=== PATIENT | female | born 1955 | race Caucasian/White ===

== ENCOUNTER 2016-06-24 11:00 | Emergency (ER) | payer MEDICAID ==
--- NOTE | 2016-06-24 11:14 | EDM.PDOC ---
ED HPI GENERAL MEDICAL PROBLEM - General Chief Complaint: General Stated Complaint: PASSING OUT Time Seen by Provider: 06/24/16 11:10 Source of Information: Reports: Patient History Limitations: Reports: No limitations - History of Present Illness INITIAL COMMENTS - FREE TEXT/NARRATIVE: HISTORY AND PHYSICAL: History of present illness: [Patient is brought to the ER by her cousin for evaluation. This morning she had a near syncopal episode after she had some vomiting and a bowel movement. She states that she has not been feeling well for the past several weeks and last followed up with Dr. Miller her PCP on June 10. She's been taking gabapentin and Zoloft since then. She admits to decreased appetite for the past 4 weeks or so. vague complaints of pain to her neck, chest, and wrapping around her mid back. She describes a burning sensation over her midsternum. The pain does not feel like a heaviness or pressure in her chest. Denies sharp shooting pain in her chest. Has had no shortness of breath or difficulty breathing. Her arms feel limp and weak, not worse unilaterally. Bowel movement was normal this morning. Smokes one pack per day] Review of systems: As per history of present illness and below otherwise all systems reviewed and negative. Past medical history: As per history of present illness and as reviewed below otherwise noncontributory. Surgical history: As per history of present illness and as reviewed below otherwise noncontributory. Social history: No reported history of drug or alcohol abuse. Family history: As per history of present illness and as reviewed below otherwise noncontributory. Physical exam: General: Well-developed thin frail female in no acute distress. Skin is pale to [place] in color HEENT: Atraumatic, normocephalic. PERRLA. mucous membranes moist. neck supple, nontender, trachea midline. Lungs: Clear to auscultation, breath sounds equal bilaterally, chest nontender. Heart: S1S2, regular rate and rhythm. negative for clicks, rubs, or JVD. Abdomen: Thin, Soft, nondistended, nontender. Pelvis: Stable nontender. Genitourinary: Deferred. Rectal: Deferred. Extremities: Atraumatic, no deformity. No cyanosis or edema to feet or lower legs. Neurovascular unremarkable. Neuro: Awake, alert, oriented. Motor and sensory unremarkable throughout. Exam nonfocal. Diagnostics: [CBC, CMP, troponin, EKG, chest x-ray, urinalysis] Therapeutics: [Aspirin 324 mg chewed] Impression: [STEMI] Plan: [EKG shows STEMI. Troponin 0.39. Dr. Draper discussed the case with Dr. Peraza at [facility]. He recommends holding TNKase and giving 7000 units heparin IV. 1 L bolus of normal saline. Patient will be transferred by [facility] flight air ambulance to [facility] ER. ] Definitive disposition and diagnosis as appropriate pending reevaluation and review of above. 0 left shoulder Pain Score (Numeric/FACES): 4 - Related Data Allergies Allergy/AdvReac Type Severity Reaction Status Date / Time No Known Allergies Allergy Verified 06/24/16 11:19 Home Meds: Home Meds Fluticasone/Vilanterol [Breo Ellipta 100-25 MCG Inhalation Kit] 1 each IH DAILY 06/24/16 [History] Gabapentin [Gralise] 600 mg PO QID 06/24/16 [History] Sertraline [Zoloft] 50 mg PO ONETIME 06/24/16 [History] Sulfamethoxazole/Trimethoprim [Bactrim 400-80 MG] 1 each PO DAILY 06/24/16 [ History] ED ROS GENERAL - Review of Systems Review Of Systems: ROS reveals no pertinent complaints other than HPI. ED EXAM, GENERAL - Physical Exam Exam: See Below Course - Vital Signs Last Recorded V/S: Last Vital Signs Temp 97.6 F 06/24/16 11:16 Pulse 73 06/24/16 11:16 Resp 18 06/24/16 11:16 BP 107/63 06/24/16 11:16 Pulse Ox 94 L 06/24/16 11:16 - Orders/Labs/Meds Orders: Active Orders 24 hr Category Date Time Status EKG Documentation Completion [RC] STAT Care 06/24/16 11:18 Active EKG Documentation Completion [RC] STAT Care 06/24/16 12:00 Active Chest 1V Frontal [CR] Stat Exams 06/24/16 11:52 Taken COMPREHENSIVE METABOLIC PN,CMP [CHEM] Stat Lab 06/24/16 11:28 Received Sodium Chloride 0.9% [Normal Saline] 1,000 ml Med 06/24/16 11:40 Active IV .Bolus Sodium Chloride 0.9% [Saline Flush] Med 06/24/16 11:18 Active 10 ml FLUSH ASDIRECTED PRN Sodium Chloride 0.9% [Saline Flush] Med 06/24/16 11:18 Active 2.5 ml FLUSH ASDIRECTED PRN Saline Lock Insert [OM.PC] Stat Oth 06/24/16 11:19 Ordered Medication Orders Sodium Chloride (Normal Saline) 1,000 mls @ 999 mls/hr IV .Bolus ONE Stop: 06/24/16 12:40 Last Admin: 06/24/16 11:42 Dose: 999 mls/hr Sodium Chloride (Saline Flush) 10 ml FLUSH ASDIRECTED PRN PRN Reason: Keep Vein Open Last Admin: 06/24/16 11:25 Dose: 10 ml Sodium Chloride (Saline Flush) 2.5 ml FLUSH ASDIRECTED PRN PRN Reason: Keep Vein Open Last Admin: 06/24/16 11:25 Dose: 2.5 ml Labs: Laboratory Tests 06/24/16 06/24/16 Range/Units 11:28 11:28 WBC 12.27 H (4.0-11.0) K/uL RBC 5.03 (4.30-5.90) M/uL Hgb 15.5 (12.0-16.0) g/dL Hct 45.6 (36.0-46.0) % MCV 90.7 (80.0-98.0) fL MCH 30.8 (27.0-32.0) pg MCHC 34.0 (31.0-37.0) g/dL RDW Std Deviation 44.5 (28.0-62.0) fl RDW Coeff of Shobha 14 (11.0-15.0) % Plt Count 277 (150-400) K/uL MPV 9.20 (7.40-12.00) fL Neut % (Auto) 86.8 H (48.0-80.0) % Lymph % (Auto) 5.3 L (16.0-40.0) % Sac % (Auto) 7.5 (0.0-15.0) % Eos % (Auto) 0.2 (0.0-7.0) % Baso % (Auto) 0.2 (0.0-1.5) % Neut # 10.7 H (1.4-5.7) K/uL Lymph # 0.7 (0.6-2.4) K/uL Sac # 0.9 H (0.0-0.8) K/uL Eos # 0.0 (0.0-0.7) K/uL Baso # 0.0 (0.0-0.1) K/uL Nucleated RBC % 0.0 /100WBC Nucleated RBCs # 0 K/uL Troponin I 0.39 H* (0.0-0.29) NG/ML Meds: Medications Generic Name Dose Route Start Last Admin Trade Name Freq PRN Reason Stop Dose Admin Sodium Chloride 1,000 mls @ 999 mls/hr 06/24/16 11:40 06/24/16 11:42 Normal Saline IV 06/24/16 12:40 999 mls/hr .Bolus ONE Administration Sodium Chloride 10 ml 06/24/16 11:18 06/24/16 11:25 Saline Flush FLUSH 10 ml ASDIRECTED PRN Administration Keep Vein Open Sodium Chloride 2.5 ml 06/24/16 11:18 06/24/16 11:25 Saline Flush FLUSH 2.5 ml ASDIRECTED PRN Administration Keep Vein Open Discontinued Medications Generic Name Dose Route Start Last Admin Trade Name Freq PRN Reason Stop Dose Admin Aspirin 324 mg 06/24/16 11:19 06/24/16 11:25 Aspirin PO 06/24/16 11:20 324 mg ONETIME ONE Administration Heparin Sodium (Porcine) 7,000 units 06/24/16 11:42 06/24/16 11:50 Heparin Sodium IVPUSH 06/24/16 11:43 7,000 units ONETIME ONE Administration Tenecteplase Confirm 06/24/16 11:40 06/24/16 11:49 Tnkase Administered 06/24/16 11:41 Not Given Dose 50 mg .ROUTE .STK-MED ONE Departure - Departure Time of Disposition: 12:05 Disposition: DC/Tfer to Acute Hospital 02 Condition: good Clinical Impression: HI, Myocardial infarction Forms: ED Department Discharge - My Orders Last 24 Hours: My Active Orders 06/24/16 11:18 EKG Documentation Completion [RC] STAT Sodium Chloride 0.9% [Saline Flush] 10 ml FLUSH ASDIRECTED PRN Sodium Chloride 0.9% [Saline Flush] 2.5 ml FLUSH ASDIRECTED PRN 06/24/16 11:19 Saline Lock Insert [OM.PC] Stat 06/24/16 11:28 COMPREHENSIVE METABOLIC PN,CMP [CHEM] Stat 06/24/16 11:40 Sodium Chloride 0.9% [Normal Saline] 1,000 ml IV .Bolus 06/24/16 11:52 Chest 1V Frontal [CR] Stat 06/24/16 12:00 EKG Documentation Completion [RC] STAT - Assessment/Plan Last 24 Hours: My Active Orders 06/24/16 11:18 EKG Documentation Completion [RC] STAT Sodium Chloride 0.9% [Saline Flush] 10 ml FLUSH ASDIRECTED PRN Sodium Chloride 0.9% [Saline Flush] 2.5 ml FLUSH ASDIRECTED PRN 06/24/16 11:19 Saline Lock Insert [OM.PC] Stat 06/24/16 11:28 COMPREHENSIVE METABOLIC PN,CMP [CHEM] Stat 06/24/16 11:40 Sodium Chloride 0.9% [Normal Saline] 1,000 ml IV .Bolus 06/24/16 11:52 Chest 1V Frontal [CR] Stat 06/24/16 12:00 EKG Documentation Completion [RC] STAT
[2016-06-24] MEDS ORDERED: Sodium Chloride 0.9% 2.5 ML Syringe FLUSH PRN (11:18)
[2016-06-24] MEDS ORDERED: Sodium Chloride 0.9% 10 ML Syringe FLUSH PRN (11:18)
[2016-06-24] MEDS ORDERED: Aspirin 81 MG Tab.Chew PO ONE (11:19)
[2016-06-24] MEDS ORDERED: Tenecteplase 50 MG Kit ONE (11:40)
[2016-06-24] MEDS ORDERED: Sodium Chloride 0.9% 1,000 ML IV ONE (11:40)
[2016-06-24] MEDS ORDERED: Heparin Sodium 5,000 Units/ML Vial IVPUSH ONE (11:42)
--- NOTE | 2016-06-24 12:21 | CR ---
EXAMINATION: Portable chest radiograph. HISTORY: Chest pain. FINDINGS: The trachea is midline. The cardiomediastinal silhouette is within normal limits. Chronic interstiti al changes are noted. There is a 4.1 cm left apical mass noted. No pleural effusion or pneumothorax. Osseous structures appear unremarkable. IMPRESSION: 1. Chronic interstitial changes noted. 2. Suspicious 4.1 cm left apical mass.
[2016-06-24 12:28] LABS: CHLORIDE,CL 100 mmol/L (98-110); SODIUM,NA 131 mmol/L (136-146)
[2016-06-24 13:11] VITALS: BP 99/57
== END 2016-06-24 12:05 ==
LOC: MW.ED 11:00
DX: I21.3 ST elevation (STEMI) myocardial infarction of unspecified site (principal); R11.10 Vomiting, unspecified; R63.0 Anorexia; Z79.899 Other long term (current) drug therapy
CPT/HCPCS: 36415; 71010; 80053; 84484; 85025; 93005; 96374; 99291; A9270; J1644; J7040; 99285

== ENCOUNTER 2017-11-06 14:22 | Emergency (ER) | payer MEDICAID ==
[2017-11-06] MEDS ORDERED: Albuterol/Ipratropium 3.0-0.5 MG/3 ML Neb Soln NEB ONE (14:58)
[2017-11-06] MEDS ORDERED: predniSONE 20 MG Tab PO ONE (14:58)
--- NOTE | 2017-11-06 15:02 | EDM.PDOC ---
ED HPI GENERAL MEDICAL PROBLEM - General Chief Complaint: Respiratory Problem Stated Complaint: SOB Time Seen by Provider: 11/06/17 14:29 Source of Information: Reports: Patient History Limitations: Reports: No Limitations - History of Present Illness INITIAL COMMENTS - FREE TEXT/NARRATIVE: History of present illness: []She has been having coughing and shortness of breath for 5 days. Eyes are always been using albuterol nebs 3 times a day with mild improvement. She denies any fevers, chills, nausea, vomiting or diarrhea. Some mild chest pain meds in the back of her chest on the left shoulder blade. Patient believes she has had a heart attack one year ago when she was seen here and flown to [place] and stents were placed. At that time she was told she may need 1 more stent later on but Dr. Jameson has since retired and she does not have a equipment cleaner to follow-up with. Patient is a smoker and does continue to smoke. Review of systems: As per history of present illness and below otherwise all systems reviewed and negative. Past medical history: As per history of present illness and as reviewed below otherwise noncontributory. Surgical history: As per history of present illness and as reviewed below otherwise noncontributory. Social history: No reported history of drug or alcohol abuse. Family history: As per history of present illness and as reviewed below otherwise noncontributory. Physical exam: General: Well developed, well nourished in NAD HEENT: Atraumatic, normocephalic, pupils reactive, negative for conjunctival pallor or scleral icterus, mucous membranes moist, throat clear, neck supple, nontender, trachea midline. Lungs: Bilateral wheezing to auscultation, , chest nontender. No respiratory distress Heart: S1S2, regular, negative for clicks, rubs, or JVD. Abdomen: Soft, nondistended, nontender. Negative for masses or hepatosplenomegaly. Negative for costovertebral tenderness. Pelvis: Stable nontender. Genitourinary: Deferred. Rectal: Deferred. Extremities: Atraumatic, negative for cords or calf pain. Neurovascular unremarkable. Neuro: Awake, alert, oriented. Cranial nerves II through XII unremarkable. Cerebellum unremarkable. Motor and sensory unremarkable throughout. Exam nonfocal. Diagnostics: []Stat x-ray done showing multiple large metastases bilaterally with the primary nodule in the left upper apices that was present on a chest x-ray June 24, 2016 Therapeutics: []DuoNeb, prednisone Impression: []Bilateral pulmonary metastases Plan: []Follow-up with primary care or if any symptoms worsen or change. Definitive disposition and diagnosis as appropriate pending reevaluation and review of above. Left Arm Pain Score (Numeric/FACES): 5 - Related Data Allergies Allergy/AdvReac Type Severity Reaction Status Date / Time No Known Allergies Allergy Verified 11/06/17 14:44 Home Meds: Home Meds Fluticasone/Vilanterol [Breo Ellipta 100-25 MCG Inhalation Kit] 1 each IH DAILY 06/24/16 [History] Gabapentin [Gralise] 600 mg PO QID 06/24/16 [History] Sertraline [Zoloft] 50 mg PO DAILY 06/24/16 [History] Aspirin 81 mg PO DAILY 11/06/17 [History] Clopidogrel [Plavix] 75 mg PO DAILY 11/06/17 [History] Lisinopril 5 mg PO DAILY 11/06/17 [History] Metoprolol Tartrate 0.5 tab PO BID 11/06/17 [History] atorvaSTATin [Lipitor] 40 mg PO BEDTIME 11/06/17 [History] predniSONE [Prednisone] 20 mg PO DAILY #5 tablet 11/06/17 [Rx] Past Medical History Cardiovascular History: Reports: Hypertension, [place], Stents Respiratory History: Reports: COPD Musculoskeletal History: Reports: Other (See Below) Other Musculoskeletal History: neuropathy Psychiatric History: Reports: Anxiety, Depression - Infectious Disease History Infectious Disease History: Reports: Measles - Past Surgical History Female Surgical History: Reports: Section Social & Family History - Family History Family Medical History: Noncontributory - Tobacco Use Smoking Status *Q: Current Every Day Smoker Years of Tobacco use: 40 Packs/Tins Daily: 0.5 - Caffeine Use Caffeine Use: Reports: Coffee - Recreational Drug Use Recreational Drug Use: No ED ROS GENERAL - Review of Systems Review Of Systems: ROS reveals no pertinent complaints other than HPI. ED EXAM, GENERAL - Physical Exam Exam: See Below (See history of present illness) Course - Vital Signs Last Recorded V/S: Last Vital Signs Temp 97.3 F 11/06/17 14:41 Pulse 83 11/06/17 14:41 Resp 16 11/06/17 14:41 BP 100/56 L 11/06/17 14:41 Pulse Ox 94 L 11/06/17 14:41 - Orders/Labs/Meds Orders: Active Orders 24 hr Category Date Time Status RT Aerosol Therapy [RC] ASDIRECTED Care 11/06/17 14:58 Active Meds: Medications Discontinued Medications Generic Name Dose Route Start Last Admin Trade Name Lito PRN Reason Stop Dose Admin Albuterol/Ipratropium 3 ml 11/06/17 14:58 11/06/17 15:20 Duoneb 3.0-0.5 Mg/3 Ml NEB 11/06/17 14:59 3 ml ONETIME ONE Administration Prednisone 60 mg 11/06/17 14:58 11/06/17 15:39 Prednisone PO 11/06/17 14:59 60 mg ONETIME ONE Administration - Re-Assessments/Exams Free Text/Narrative Re-Assessment/Exam: I was unable to find any records of documentation of any follow-up is from back in June 2016. Patient stated that she was told that she had a lung nodule suspicious for cancer back in 2016 however she chose to not follow-up or seek treatment. She states Dr. Miller did address this finding with her. I did tell her that her chest x-ray today is markedly changed with spread of this cancer to bilateral lung vines and she is aware of the need to follow-up with her primary and/or oncology. Patient was given prednisone and a DuoNeb here in the ED with improvement of her breathing. 11/06/17 15:56 Departure - Departure Time of Disposition: 15:48 Disposition: Home, Self-Care 01 Condition: Good Clinical Impression: Bilateral pulmonary metastases - Discharge Information *PRESCRIPTION DRUG MONITORING PROGRAM REVIEWED*: Not Applicable *COPY OF PRESCRIPTION DRUG MONITORING REPORT IN PATIENT CLARA: Not Applicable Prescriptions: predniSONE [Prednisone] 20 mg PO DAILY #5 tablet Referrals: Kalin Miller MD [Primary Care Provider] - Forms: ED Department Discharge Additional Instructions: The following information is given to patients seen in the emergency department who are being discharged to home. This information is to outline your options for follow-up care. We provide all patients seen in our emergency department with a follow-up referral. The need for follow-up, as well as the timing and circumstances, are variable depending upon the specifics of your emergency department visit. If you don't have a primary care physician on staff, we will provide you with a referral. We always advise you to contact your personal physician following an emergency department visit to inform them of the circumstance of the visit and for follow-up with them and/or the need for any referrals to a consulting specialist. The emergency department will also refer you to a specialist when appropriate. This referral assures that you have the opportunity for follow-up care with a specialist. All of these measure are taken in an effort to provide you with optimal care, which includes your follow-up. Under all circumstances we always encourage you to contact your private physician who remains a resource for coordinating your care. When calling for follow-up care, please make the office aware that this follow-up is from your recent emergency room visit. If for any reason you are refused follow-up, please contact the Emergency Department at and asked to speak to the emergency department charge nurse. Prednisone as directed, use albuterol nebs as directed follow-up with Dr. Miller return if symptoms worsen or change. - My Orders Last 24 Hours: My Active Orders 11/06/17 14:58 RT Aerosol Therapy [RC] ASDIRECTED - Assessment/Plan Last 24 Hours: My Active Orders 11/06/17 14:58 RT Aerosol Therapy [RC] ASDIRECTED
--- NOTE | 2017-11-06 15:26 | CR ---
EXAMINATION: Two-view chest (PA and Lateral views). HISTORY: Shortness of breath. FINDINGS: The trachea is midline. The heart is normal in size. The previously demonstrated left apical mass now measures 9 by approximately 7.3 cm. Numerous round metastatic lesions are noted bilaterally. Biapica l fullness. No pleural effusion or pneumothorax. Osseous structures appear unremarkable. IMPRESSION: 1. Large left apical mass with numerous pulmonary metastases bilaterally.
[2017-11-06 16:34] VITALS: BP 102/57
== END 2017-11-06 16:31 | disposition home or self-care (01) ==
LOC: MW.ED 14:22
DX: C34.90 Malignant neoplasm of unspecified part of unspecified bronchus or lung (principal); J44.9 Chronic obstructive pulmonary disease, unspecified; I25.2 Old myocardial infarction; F17.210 Nicotine dependence, cigarettes, uncomplicated; Z79.899 Other long term (current) drug therapy; Z79.82 Long term (current) use of aspirin
CPT/HCPCS: 71046; 94640; 99283; A9270

== ENCOUNTER 2018-01-15 11:53 | Day surgery (SDC) | payer MEDICAID ==
--- NOTE | 2018-01-03 16:23 | PCM.CONS ---
H&P History of Present Illness - Related Data Allergies/Adverse Reactions: Allergies Allergy/AdvReac Type Severity Reaction Status Date / Time No Known Allergies Allergy Verified 11/06/17 14:44 Home Medications: Home Meds Fluticasone/Vilanterol [Breo Ellipta 100-25 MCG Inhalation Kit] 1 each IH DAILY 06/24/16 [History] Gabapentin [Gralise] 600 mg PO QID 06/24/16 [History] Sertraline [Zoloft] 50 mg PO DAILY 06/24/16 [History] Aspirin 81 mg PO DAILY 11/06/17 [History] Clopidogrel [Plavix] 75 mg PO DAILY 11/06/17 [History] Lisinopril 5 mg PO DAILY 11/06/17 [History] Metoprolol Tartrate 0.5 tab PO BID 11/06/17 [History] atorvaSTATin [Lipitor] 40 mg PO BEDTIME 11/06/17 [History] predniSONE [Prednisone] 20 mg PO DAILY #5 tablet 11/06/17 [Rx] Past Medical History Cardiovascular History: Reports: Hypertension, [place], Stents Respiratory History: Reports: COPD Musculoskeletal History: Reports: Other (See Below) Other Musculoskeletal History: neuropathy Psychiatric History: Reports: Anxiety, Depression - Infectious Disease History Infectious Disease History: Reports: Measles - Past Surgical History Female Surgical History: Reports: Section Social & Family History - Family History Family Medical History: Noncontributory - Caffeine Use Caffeine Use: Reports: Coffee Consult PN Assessment/Plan Procedures: Procedures AIRWAY INHALATION TREATMENT (11/06/17) ASSAY OF BLOOD/URIC ACID (12/13/17) ASSAY OF PHOSPHORUS (12/13/17) ASSAY OF TROPONIN QUANT (06/24/16) ASSAY OF URINE OSMOLALITY (12/13/17) ASSAY OF URINE SODIUM (12/13/17) CHEST X-RAY 1 VIEW FRONTAL (06/24/16) COMPLETE CBC W/AUTO DIFF WBC (12/13/17) COMPREHEN METABOLIC PANEL (12/13/17) CRITICAL CARE FIRST HOUR (06/24/16) CT MAXILLOFACIAL W/O DYE (08/11/15) CT THORAX W/O & W/DYE (11/17/17) ELECTROCARDIOGRAM TRACING (06/24/16) EMERGENCY DEPT VISIT (11/06/17) INJECT SPINE LUMBAR/SACRAL (12/15/15) LACTATE (LD) (LDH) ENZYME (12/13/17) METABOLIC PANEL TOTAL CA (11/17/17) MRI BRAIN STEM W/O & W/DYE (12/18/17) MRI LUMBAR SPINE W/O DYE (10/28/15) PERCUT BX LUNG/MEDIASTINUM (11/29/17) PET IMAGE W/CT SKULL-THIGH (12/18/17) PROTHROMBIN TIME (11/29/17) ROUTINE VENIPUNCTURE (12/13/17) THER/PROPH/DIAG INJ IV PUSH (06/24/16) THROMBOPLASTIN TIME PARTIAL (11/29/17) X-RAY EXAM CHEST 1 VIEW (11/29/17) X-RAY EXAM CHEST 2 VIEWS (11/06/17)
--- NOTE | 2018-01-03 17:18 | PCM.SN ---
- Free Text/Narrative Note: Preop. 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 At that time single lung lesion was diascovered but patient refused further evaluation. She has HTN, increased cholesterol, COPD, fibromyalgia, arthritis (knees) and peripheral neuropathy. She claims to be able to walk flight of stairs or two blocks slowly without SOB. She quit smoking 3 weeks ago. Assessment: very high risk patient with extensive pulmonary spread of small lung cancer, COPD,HTN, high cholesterol, CAD and other health problems. She understand risk of surgery and anesthesia and accepts it. We will proceed with light anesthesia for port-a-cath placement.
[~2018-01-15 11:53] MED LIST: Bupivacaine 0.5% 10 ML SDV ONE; Iopamidol 408 MG/ML 50 ML SDV ONE; Lactated Ringers 1,000 ML IV SCH; Lidocaine 1% 20 ML MDV ONE; Sodium Chloride 0.9% 10 ML Syringe FLUSH PRN; Sodium Chloride 0.9% 2.5 ML Syringe FLUSH PRN; ceFAZolin 1 GM in Premix Bag 1 BAG IV ONE
[2018-01-15] MEDS ORDERED: Midazolam 1 MG/ML 2 ML SDV ONE (13:23)
[2018-01-15] MEDS ORDERED: fentaNYL 100 MCG/2 ML SDV ONE ×2 (13:23→14:36)
[2018-01-15] MEDS ORDERED: Bupivacaine 0.5% 30 ML SDV ONE (13:26)
[2018-01-15] MEDS ORDERED: Lidocaine 1% 20 ML MDV ONE (13:27)
[2018-01-15] MEDS ORDERED: Heparin Sodium 100 Units/ML 3 ML Syringe ONE (13:27)
[2018-01-15] MEDS ORDERED: Iopamidol 408 MG/ML 50 ML SDV ONE (13:27)
--- NOTE | 2018-01-15 13:37 | PCM.PREANE ---
Preanesthetic Assessment - Procedure Proposed Procedure: Port a Cath placement - right. - Anesthesia/Transfusion/Family Hx Anesthesia History: Prior Anesthesia Without Reaction Family History of Anesthesia Reaction: No Transfusion History: No Prior Transfusion(s) - Review of Systems General: Weakness Pulmonary: Shortness of Breath, Other (mass on left to hilum (greater than 7x10cm).) Cardiovascular: Other (not admitting TORRES, 3 stents and WI last 06/2016, now for chemo of lesions existing then.) Gastrointestinal: No Symptoms Neurological: Other (chronic back pain, lumbar DJD and radiculopathy) Other: Reports: Depression - Physical Assessment NPO Status Date: 01/14/18 NPO Status Time: 22:00 O2 Sat by Pulse Oximetry: 96 Respiratory Rate: 16 Vital Signs: Last Vital Signs Temp 97.2 F 01/15/18 12:12 Pulse 75 01/15/18 12:12 Resp 16 01/15/18 12:12 BP 101/55 L 01/15/18 12:12 Pulse Ox 96 01/15/18 12:12 Height: 5 ft 2 in Weight: 94 lb ASA Class: 4 Mental Status: Alert & Oriented x3 Airway Class: Mallampati = 2 Dentition: Reports: Normal Dentition (bonded together by her dentist....gum disease/teeth degradation) Thyro-Mental Finger Breadths: 3 Mouth Opening Finger Breadths: 3 ROM/Head Extension: Limited/Partial Lungs: Clear to Auscultation, Normal Respiratory Effort Cardiovascular: Regular Rate, Regular Rhythm Other: cachectic - Lab Values: Laboratory Last Values WBC Cancelled 01/08/18 11:20 RBC Cancelled 01/08/18 11:20 Hgb Cancelled 01/08/18 11:20 Hct Cancelled 01/08/18 11:20 MCV Cancelled 01/08/18 11:20 MCH Cancelled 01/08/18 11:20 MCHC Cancelled 01/08/18 11:20 RDW Std Deviation Cancelled 01/08/18 11:20 RDW Coeff of Shobha Cancelled 01/08/18 11:20 Plt Count Cancelled 01/08/18 11:20 MPV Cancelled 01/08/18 11:20 Nucleated RBC % Cancelled 01/08/18 11:20 Nucleated RBCs # Cancelled 01/08/18 11:20 INR Cancelled 01/08/18 11:20 APTT Cancelled 01/08/18 11:20 Sodium Cancelled 01/08/18 11:20 Potassium Cancelled 01/08/18 11:20 Chloride Cancelled 01/08/18 11:20 Carbon Dioxide Cancelled 01/08/18 11:20 BUN Cancelled 01/08/18 11:20 Creatinine Cancelled 01/08/18 11:20 Est Cr Clr Drug Dosing Cancelled 01/08/18 11:20 Estimated GFR (MDRD) Cancelled 01/08/18 11:20 Glucose Cancelled 01/08/18 11:20 Calcium Cancelled 01/08/18 11:20 - Allergies Allergies/Adverse Reactions: Allergies Allergy/AdvReac Type Severity Reaction Status Date / Time No Known Allergies Allergy Verified 01/04/18 10:30 - Blood Blood Available: No Product(s) Available: None - Anesthesia Plan Pre-Op Medication Ordered: None - Acknowledgements Anesthesia Type Planned: MAC (local by surgeon) Pt an Appropriate Candidate for the Planned Anesthesia: Yes Alternatives and Risks of Anesthesia Discussed w Pt/Guardian: Yes Pt/Guardian Understands and Agrees with Anesthesia Plan: Yes PreAnesthesia Questionnaire HEENT History: Reports: Other (See Below) Other HEENT History: wears glasses Cardiovascular History: Reports: High Cholesterol, Hypertension, WI, Stents Respiratory History: Reports: COPD, Other (See Below) Other Respiratory History: lung cancer Gastrointestinal History: Reports: Other (See Below) Other Gastrointestinal History: hx gastric ulcer Genitourinary History: Reports: None FSR History: Reports: Musculoskeletal History: Reports: Arthritis, Other (See Below) Other Musculoskeletal History: neuropathy Neurological History: Reports: Neuropathy, Peripheral Psychiatric History: Reports: Anxiety, Depression Oncologic (Cancer) History: Reports: Lung - Infectious Disease History Infectious Disease History: Reports: Measles - Past Surgical History Head Surgeries/Procedures: Reports: None Cardiovascular Surgical History: Reports: Coronary Artery Stent Female Surgical History: Reports: Section - SUBSTANCE USE Smoking Status *Q: Former Smoker Tobacco Use Within Last Twelve Months: Cigarettes Recreational Drug Use History: No - HOME MEDS Home Medications: Home Meds Gabapentin [Gralise] 600 mg PO TID 06/24/16 [History] Sertraline [Zoloft] 50 mg PO DAILY 06/24/16 [History] Lisinopril 5 mg PO DAILY 11/06/17 [History] Metoprolol Tartrate 0.5 tab PO BID 11/06/17 [History] atorvaSTATin [Lipitor] 40 mg PO BEDTIME 11/06/17 [History] Acetaminophen with Codeine [Acetaminophen-Cod #3] 0.5 tab PO BEDTIME 01/04/18 [ History] Ondansetron HCl [Ondansetron] 8 mg PO ASDIRECTED PRN 01/04/18 [History] Prochlorperazine Maleate [Compazine] 10 mg PO ASDIRECTED PRN 01/04/18 [History] traMADol HCl [Tramadol HCl] 50 mg PO Q8H PRN 01/04/18 [History] - CURRENT (IN HOUSE) MEDS Current Meds: Current Medications Lactated Ringer's (Ringers, Lactated) 1,000 mls @ 125 mls/hr IV ASDIRECTED ZOË Last Admin: 01/15/18 12:24 Dose: 125 mls/hr Sodium Chloride (Saline Flush) 10 ml FLUSH ASDIRECTED PRN PRN Reason: Keep Vein Open Sodium Chloride (Saline Flush) 2.5 ml FLUSH ASDIRECTED PRN PRN Reason: Keep Vein Open Discontinued Medications Bupivacaine HCl (Sensorcaine-Mpf 0.5%) Confirm Administered Dose 10 ml .ROUTE .STK-MED ONE Stop: 01/09/18 07:49 Bupivacaine HCl (Marcaine 0.5%) Confirm Administered Dose 30 ml .ROUTE .STK-MED ONE Stop: 01/15/18 13:27 Fentanyl (Sublimaze) Confirm Administered Dose 100 mcg .ROUTE .STK-MED ONE Stop: 01/15/18 13:24 Heparin Sodium (Porcine) (Heparin Lock Flush 100 Units/Ml) Confirm Administered Dose 900 unit .ROUTE .STK-MED ONE Stop: 01/15/18 13:28 Cefazolin Sodium/Dextrose 1 gm (/ Premix) 50 mls @ 100 mls/hr IV ONETIME ONE Stop: 01/08/18 11:10 Iopamidol (Isovue-200 (41%)) Confirm Administered Dose 50 ml .ROUTE .STK-MED ONE Stop: 01/09/18 07:49 Iopamidol (Isovue-200 (41%)) Confirm Administered Dose 50 ml .ROUTE .STK-MED ONE Stop: 01/15/18 13:28 Lidocaine HCl (Xylocaine 1%) Confirm Administered Dose 20 ml .ROUTE .STK-MED ONE Stop: 01/09/18 07:49 Lidocaine HCl (Xylocaine 1%) Confirm Administered Dose 20 ml .ROUTE .STK-MED ONE Stop: 01/15/18 13:28 Midazolam HCl (Versed 1 Mg/Ml) Confirm Administered Dose 2 mg .ROUTE .STK-MED ONE Stop: 01/15/18 13:24
[2018-01-15] MEDS ORDERED: ceFAZolin 1 GM Vial ONE (14:32)
[2018-01-15] MEDS ORDERED: Sodium Chloride 0.9% 20 ML ONE (14:32)
[2018-01-15] MEDS ORDERED: Octyl 2-Cyanoacrylate 1 Tube ONE (15:10)
--- NOTE | 2018-01-15 15:28 | PCM.OPNOTE ---
- General Post-Op/Procedure Note Date of Surgery/Procedure: 01/15/18 Operative Procedure(s): Right internal jugular port a cath placement Findings: Right internal jugular port a cath placement Pre Op Diagnosis: Lung cancer Post-Op Diagnosis: same Anesthesia Technique: Local, MAC Primary Surgeon: Nicki Conner EBL in mLs: 5 Condition: Good
--- NOTE | 2018-01-15 15:58 | CR ---
EXAMINATION: Portable chest radiograph. HISTORY: Port-A-Cath placement. FINDINGS: The trachea is midline. The cardiomediastinal silhouette is within normal limits. No pulmonary infilt rates, effusions or pneumothorax. Numerous pulmonary masses again noted bilaterally. There is a right -sided portacatheter noted with tip in the distal SVC. Osseous structures appear unremarkable. IMPRESSION: 1. Right-sided portacatheter noted with tip in good position. No pneumothorax identified.
[2018-01-15 16:35] VITALS: BP 106/62
--- NOTE | 2018-01-15 21:49 | OR ---
SURGEON: ZEKE TAVAREZ MD DATE OF PROCEDURE: 01/15/2018 PREOPERATIVE DIAGNOSIS: Lung cancer. POSTOPERATIVE DIAGNOSIS: Lung cancer. PROCEDURE PERFORMED: Right internal jugular Port-A-Cath placement. ANESTHESIA: MAC, local. FLUIDS: See anesthesia record. ESTIMATED BLOOD LOSS: 5 mL. FINDINGS: Successful placement of right internal jugular Port-A-Cath with port placed on the right anterior chest wall. COMPLICATIONS: None. INDICATIONS: The patient is a 62-year-old female with metastatic lung cancer. She has started chemotherapy and is in need of venous access. We discussed the Port-A- Cath device as well as how it is placed. I explained the expected perioperative course as well as the risks including bleeding, infection, or damage to surrounding structures including hemothorax, pneumothorax, or hemopericardium. The patient verbalized understanding and wishes to proceed. Given the patient's medical comorbidities associated with this lung cancer, preoperative labs were drawn and found to be within an acceptable range. PROCEDURE IN DETAIL: The patient was brought to the OR and placed on the OR table in supine position. A time-out was completed verifying the patient's name, age, date of , allergies, and procedure to be performed. Monitored anesthesia care was induced. An ultrasound was used to verify the vascular anatomy of the right side of the neck. A photograph was taken off the ultrasound and placed in the patient's chart. The right neck and chest were prepped and draped in usual standard fashion. Using ultrasound, I reidentified the vascular anatomy of the right side of the neck. The patient was placed into Trendelenburg position. This allowed the internal jugular vein to dilate up and made it easier to visualize. I anesthetized the area over the right lower neck and anterior right chest with 1% lidocaine plain and 0.5% lidocaine plain. This was allowed to take effect before proceeding forward. Once adequate anesthesia was achieved, I then used an ultrasound to place my guide needle into the right internal jugular vein. I had an immediate return of venous blood in the syringe. The syringe was removed and a guidewire was then placed down the needle into the internal jugular vein and down into the superior vena cava. C-arm was brought in and I verified placement of my guidewire in the correct position. The guide needle was removed. I then turned my attention to the right anterior chest wall. A 4 cm incision was made using a #15 blade. I then used cautery to dissect down to the chest wall. I then created a subcutaneous pocket for the port device to be placed in. I then used an #11 blade to make an incision over the guidewire on the neck insertion site. A tunneling device was used to tunnel the catheter tubing from the neck to the chest wall taking care not to involve any surrounding vascular structures since she has very little subcutaneous fat. A vascular sheath and dilator were then placed over the guidewire and under fluoroscopic guidance, I carefully dilated up my vascular tract taking care not to go too deep in the chest since the patient is very petite. The dilator and guidewire were then removed and the catheter tubing was placed down the vascular sheath. The vascular sheath was then peeled away. Under fluoroscopic guidance, the catheter tip was pulled back into the superior vena cava. I aspirated the end of the catheter tubing and obtained a good return of venous blood. The catheter was flushed with injectable saline. I trimmed my tubing and secured it to the Port- A-Cath device. The Port-A-Cath device was then placed in the chest wall pocket and secured to the chest wall with interrupted 3-0 silks. I then accessed my port and obtained a good return of venous blood. The catheter was locked with 3 mL of heparinized saline. The neck incision site was closed with an interrupted 4-0 Monocryl. The chest wall pocket was closed with interrupted 3-0 Vicryl in the subcutaneous fat and a running 4-0 Monocryl stitch in the skin layer. Dermabond and sterile dressings were applied. The patient tolerated the procedure well and was taken back to PACU in stable condition. I reviewed her postoperative chest x-ray with our radiologist and it appeared normal. CONY / LUZ /[id number] JORGE
== END 2018-01-15 16:31 | disposition home or self-care (01) ==
LOC: MW.SDS 11:53
PROVIDERS: ATTEND Surgery
DX: C34.91 Malignant neoplasm of unspecified part of right bronchus or lung (principal); C34.92 Malignant neoplasm of unspecified part of left bronchus or lung; C79.31 Secondary malignant neoplasm of brain; C79.89 Secondary malignant neoplasm of other specified sites; J44.9 Chronic obstructive pulmonary disease, unspecified; I10 Essential (primary) hypertension; E22.2 Syndrome of inappropriate secretion of antidiuretic hormone; G60.8 Other hereditary and idiopathic neuropathies; E78.00 Pure hypercholesterolemia, unspecified; G62.9 Polyneuropathy, unspecified; I25.10 Atherosclerotic heart disease of native coronary artery without angina pectoris; Z87.891 Personal history of nicotine dependence; Z79.82 Long term (current) use of aspirin; Z79.899 Other long term (current) drug therapy
CPT/HCPCS: 36561; 71045; 76000; A9270; J0690; J1642; J2250; J3010; J3490; J7120; Q9966; 36415; 80048; 85027; 85610; 85730